=== PATIENT | female | born 2000 | race Caucasian/White ===

== ENCOUNTER → 2021-06-19 | Outpatient (CLI) | payer BC ==
--- NOTE | 2021-06-19 17:03 | Diagnostic Imaging Report ---
INDICATION: IUD placement, unable to locate strings. EXAMINATION: Pelvic sonography performed with transabdominal and transvaginal views. FINDINGS: The uterus measures 5.9 x 2.8 x 4.5 cm. IUD is seen in the endometrial cavity. No uterine mass is seen. Endometrium measures 2 mm. Right ovary appears normal at 1.9 x 2.4 x 1.8 cm with normal color flow. Left ovary appears normal and measures 2.8 x 1.2 x 2.0 cm with normal color flow. There is a trace of free fluid. IMPRESSION: IUD in place in the endometrium. No uterine mass. The ovaries appear normal. There is a trace of free fluid. Dictated by: Dictated on workstation # [id number]
== END ==
LOC: RAD 15:15
PROVIDERS: ATTEND Obstetrics & Gynecology
DX: T83.39XA Other mechanical complication of intrauterine contraceptive device, initial encounter (principal)
CPT/HCPCS: 76830; 76856

== ENCOUNTER 2021-08-03 05:50 | Outpatient (CLI) | payer BC ==
[~2021-08-03] VITALS: Ht 170.2 cm; Wt 54.5 kg
[2021-08-10] MEDS ORDERED: BUPR150T24 PO (14:13)
[2021-08-10] MEDS ORDERED: RIZA10TA37 PO (14:13)
[2021-08-10] MEDS ORDERED: CYCL5TAB PO (14:13)
[2021-08-10] MEDS ORDERED: NF-NORETH5 PO (14:13)
[2021-08-10] MEDS ORDERED: ALPR0.254 PO (14:13)
== END 2021-08-12 16:09 | disposition home or self-care (01) ==
LOC: PREOP 05:50
PROVIDERS: ATTEND Obstetrics & Gynecology
DX: Z01.818 Encounter for other preprocedural examination (principal)

== ENCOUNTER 2021-08-17 08:06 | Day surgery (SDC) | payer BC ==
[2021-08-17] VITALS (10 sets, daily range): BP systolic 88–121; BP diastolic 50–79
[~2021-08-17] VITALS: Ht 170.2 cm; Wt 54.5 kg
[~2021-08-17 08:06] MED LIST: ALPR0.254 PO; BUPR150T24 PO; CYCL5TAB PO; NF-NORETH5 PO; RIZA10TA37 PO
--- OUTSIDE RECORDS SUMMARY | 2021-08-17 08:10 | XMS REPORT | CCD ---
Author Author Crista Ladd Organization Mary Carvajal MD, [facility] Address [address] [place] [address] Phone Care Team Providers Care Tank Farm Gauger Name Role Phone Mary Carvaajl PP Unavailable CCM Unavailable Summary Purpose Interface Exchange Insurance Providers Payer name Policy type / Coverage type Covered alliance party ID Effective Begin Date Effective End Date Blue Cross Blue [facility] Blue Cross/[facility] [id number] Unknown Family history Father Diagnosis Age At Onset Asthma Unknown Depression Unknown Hypertension Unknown Alcoholism Unknown Runs in the family Diagnosis Age At Onset Stroke Unknown Skin cancer Unknown Mother Diagnosis Age At Onset Hypercholesterolemia Unknown Depression Unknown genetic disease Unknown Arthritis Unknown Social History Social History Element Codes Description Effective Dates Marital status Unknown Jd 04/13/2021 Number of children Unknown 0 04/13/2021 Employment Unknown 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 [employer] 04/13/[address]: 598343669 Never smoker 04/13/[address]: 219662920 Never drinks alcohol 2020 Allergies, Adverse Reactions, Alerts Substance Reaction Codes Entered Date Inactivated Date Status NO KNOWN DRUG ALLERGIES Unknown 04/13/2021 No Inactive Date Active Problems Condition Codes Effective Dates Condition Status Encounter for general adult medical examination with a bnormal findings ICD-10: Z00.01 ICD-9: V70.0 06/29/2021 Active Migraine ICD-10: G43.909 ICD-9: 346.90 05/06/2021 Active Muscle spasm ICD-10: M62.838 ICD-9: 728.85 05/06/2021 Active Other allergic rhinitis ICD-10: J30.89 ICD-9: 477.8 05/06/2021 Active Tonsil stone ICD-10: J35.8 ICD-9: 474.8 05/06/2021 Active Endometriosis ICD-10: N80.9 ICD-9: 617.9 04/13/2021 Active History of Lyme disease ICD-10: Z86.19 ICD-9: V12.09 04/13/2021 Active Other fatigue ICD-10: R53.83 ICD-9: 780.79 04/13/2021 Active Other malaise ICD-10: R53.81 ICD-9: 780.79 04/13/2021 Active Medications Medication Codes Instructions Start Date Stop Date Status Fill Instructions cyclobenzaprine 5 mg tablet RxNorm: 536612 Take 1 Table t(s) Oral three times a day as needed FOR MUSCLE SPASMS 08/07/2021 08/16/2021 Active alprazolam 0.25 mg tablet RxNorm: 231683 Take 1 Tablet( s) Oral three times a day as needed 08/07/2021 08/16/2021 Active rizatriptan 10 mg tablet RxNorm: 996907 TAKE 1 TABLET B Y MOUTH EVERY DAY NEEDED FOR MIGRAINE 08/07/2021 08/18/2021 Active alprazolam 0.25 mg tablet RxNorm: 732734 Take 1 Tablet( s) Oral three times a day as needed 07/06/2021 07/06/2021 Inactive cyclobenzaprine 5 mg tablet RxNorm: 855461 Take 1 Table t(s) Oral three times a day as needed FOR MUSCLE SPASMS 07/06/2021 07/15/2021 Inactive alprazolam 0.25 mg tablet RxNorm: 737577 1 Tablet(s) Or al three times a day as needed 06/10/2021 06/10/2021 Inactive cyclobenzaprine 5 mg tablet RxNorm: 998235 Take 1 Table t(s) Oral three times a day as needed muscle spasms 06/10/2021 06/10/2021 Inactive Wellbutrin XL 150 mg 24 hr tablet, extended release RxNorm: 474677 1 Tablet(s) Oral every morning 05/15/2021 09/11/2021 Active Maxalt 10 mg tablet RxNorm: 272439 Take 1 Tablet(s) Ora l every day as needed migraine 05/06/2021 05/06/2021 Inactive cyclobenzaprine 5 mg tablet RxNorm: 794497 Take 1 Table t(s) Oral three times a day as needed muscle spasms 05/06/2021 06/09/2021 Inactive alprazolam 0.25 mg tablet RxNorm: 292235 1 Tablet(s) Or al three times a day as needed 05/05/2021 05/04/2021 Inactive alprazolam 0.25 mg tablet RxNorm: 010020 1 Tablet(s) Or al three times a day as needed 05/05/2021 05/14/2021 Inactive doxycycline hyclate 100 mg capsule RxNorm: 4816764 1 Cap garrison(s) Oral two times a day 04/22/2021 04/21/2021 Inactive doxycycline hyclate 100 mg capsule RxNorm: 0282281 1 Cap garrison(s) Oral two times a day 04/22/2021 05/05/2021 Inactive Diflucan 150 mg tablet RxNorm: 448975 1 Tablet(s) Oral every day 04/27/2021 Inactive norethindrone acetate 5 mg tablet RxNorm: 9248145 1 Tablet(s) Or al every day 04/13/2021 08/11/2021 Active trazodone 50 mg tablet RxNorm: 468481 1 Tablet(s) Oral every evenin g 04/13/2021 No Stop Date Active Wellbutrin XL 150 mg 24 hr tablet, extended release RxNorm: 547810 1 Tablet(s) Oral every morning 04/13/2021 05/15/2021 Inactive Augmentin 875 mg-125 mg tablet RxNorm: 559562 1 Tablet(s) Oral two times a day 04/13/2021 04/23/2021 Inactive norethindrone acetate 5 mg tablet RxNorm: 6992498 1 Tablet(s) Or al every day 04/13/2021 04/12/2021 Inactive Mirena intrauterine RxNorm: 117449 intrauterine 04/13/2021 A ctive Vitamin C oral RxNorm: 1151 oral 04/13/2021 Active multivitamin oral RxNorm: oral 04/13/2021 Active Medication Administered No Medication Administered data Immunizations Vaccine Codes Date Status Covid-19 CVX: 12/22/2020 Covid-19 CVX: 11/21/2020 Results Observation Observation Code Item Item Code Result Date S ervice Location RMSF IgM F282 [facility] Spotted Fev IgM <1:64 04/18 Unknown RMSF IgG F283 [facility] Spotted Fev IgG <1:64 04/18 Unknown EHRLICHIA CHAFFEENSIS ANTIBODY IGG BY IFA F486 E. chaffeensis A b IgG 1:128 04/18/2021 Unknown ANI VUONG VIRUS (EBV) PANEL F259 EBV NA IgG Index 41 0.0 U/mL 04/18/2021 Unknown ANI VUONG VIRUS (EBV) PANEL F259 EBV Nuclear Ag IgG Positive 04/18/2021 Unknown ANI VUONG VIRUS (EBV) PANEL F259 EBV Early Ag Index <5.0 U/mL 04/18/2021 Unknown ANI VUONG VIRUS (EBV) PANEL F259 EBV Early Antigen N egative 04/18/2021 Unknown ANI VUONG VIRUS (EBV) PANEL F259 EBV VCA IgG Index > 750.0 U/mL 04/18/2021 Unknown ANI VUONG VIRUS (EBV) PANEL F259 EBV Anti-VCA IgG Po sitive 04/18/2021 Unknown ANI VUONG VIRUS (EBV) PANEL F259 EBV VCA IgM Index < 10.0 U/mL 04/18/2021 Unknown ANI VUONG VIRUS (EBV) PANEL F259 EBV Anti-VCA IgM Ne gative 04/18/2021 Unknown LYME DISEASE ANTIBODY TOTAL WITH REFLEX TO IMMUNOBLOT F113 Lyme Disease Ab Index 0.05 Index 04/18/2021 Unknown LYME DISEASE ANTIBODY TOTAL WITH REFLEX TO IMMUNOBLOT F113 Lyme Disease Ab Total Negative 04/18/2021 Unknown EHRLICHIA CHAFFEENSIS ANTIBODY IGM BY IFA F485 E. Chaffeensis A b IgM < 1:16 04/18/2021 Unknown C-Reactive Protein Qnt Crqnt CRP 0.1 mg/dl 2020 Unknown Cbc With Differential Ord2 WBC 4.61 K/ul 04/13/20 21 Unknown Cbc With Differential Ord2 RBC 4.64 M/ul 04/13/20 21 Unknown Cbc With Differential Ord2 HGB 13.9 g/dl 04/13/20 21 Unknown Cbc With Differential Ord2 Neut% 53.5 % 04/13/20 21 Unknown Cbc With Differential Ord2 HCT 41.5 % 04/13/20 21 Unknown Cbc With Differential Ord2 MCV 89.4 fl 04/13/20 21 Unknown Cbc With Differential Ord2 Lymph% 33.6 % 04/13/20 21 Unknown Cbc With Differential Ord2 MCH 30.0 pg 04/13/20 21 Unknown Cbc With Differential Ord2 Parker% 8.2 % 04/13/20 21 Unknown Cbc With Differential Ord2 Eos% 4.3 % 04/13/20 21 Unknown Cbc With Differential Ord2 MCHC 33.5 pg 04/13/20 21 Unknown Cbc With Differential Ord2 PLT 262 K/ul 04/13/20 21 Unknown Cbc With Differential Ord2 Baso% 0.4 % 04/13/20 21 Unknown Cbc With Differential Ord2 RDW 13.3 % 04/13/20 21 Unknown Cbc With Differential Ord2 Neut ABS# 2.46 K/ul 04/13/20 21 Unknown Cbc With Differential Ord2 Lymph ABS# 1.55 K/ul 021 Unknown Cbc With Differential Ord2 [place] ABS# 0.4 K/ul 04/13/20 21 Unknown Cbc With Differential Ord2 Eos ABS# 0.2 K/ul 04/13/20 21 Unknown Cbc With Differential Ord2 Baso ABS# 0.0 K/ul 04/13/20 21 Unknown Sed Rate Ord21 ESR 7 mm/hr 04/13/2021 Unknown Comp Metabolic Ebi440 NA 138 mEq/L 04/13/2021 Unkn own Comp Metabolic Rsg799 K 3.9 mEq/L 04/13/2021 Unkn own Comp Metabolic Slo433 CL 106 mEq/L 04/13/2021 Unkn own Comp Metabolic Rjh679 CO2 27.0 mEq/L 04/13/2021 Unk nown Comp Metabolic Npm981 ANION GAP 9 04/13/2021 Unkn own Comp Metabolic Vwb851 GLUCOSE 85 mg/dL 04/13/2021 Unkn own Comp Metabolic Dbg767 Creat 0.7 mg/dL 04/13/2021 Unkn own Comp Metabolic Ibq996 eGFR 111 ml/min/1.73m2 021 Unknown Comp Metabolic Dln348 BUN 9 mg/dL 04/13/2021 Unkn own Comp Metabolic Qur548 B/C Ratio 12.7 Ratio 04/13/2021 Unk nown Comp Metabolic Vru496 CALCIUM 9.3 mg/dL 04/13/2021 Unkn own Comp Metabolic Vge144 ALK PHOS 39 U/L 04/13/2021 Unkn own Comp Metabolic Gjw881 AST(SGOT) 16 U/L 04/13/2021 Unkn own Comp Metabolic Muv624 ALT(SGPT) 12 U/L 04/13/2021 Unkn own Comp Metabolic Nyr419 BILI T 0.3 mg/dL 04/13/2021 Unkn own Comp Metabolic Qrz241 ALBUMIN 4.3 g/dL 04/13/2021 Unkn own Comp Metabolic Ohn005 TPRO 6.7 g/dL 04/13/2021 Unkn own Comp Metabolic Haq544 GLOB 2.4 g/dL 04/13/2021 Unkn own Comp Metabolic Qxj082 A/G Ratio 1.8 Ratio 04/13/2021 Unkn own Comp Metabolic Djn873 Osmo 274 mOsmo 04/13/2021 Unkn own Procedures No Procedures data Vital Signs Date Vital 06/29/2021 Blood Pressure 1: 120/82 Code: 8480-6 BMI: 19.6 Code: 16398-2 Heart Rate 1: 96 bpm Height: 5'7" Code: 8302-2 Respiratory Rate: 16 bpm SpO2: 97% Temperature: 36.7 (C) / 98.0 (F) Weight: 125 lbs Code: 49546-3 05/06/2021 Blood Pressure 1: 120/76 Code: 8480-6 Heart Rate 1: 94 bpm Height: 5'7" Code: 8302-2 SpO2: 99% Temperature: 36.3 (C) / 97.3 (F) Weight: Code: 82608-4 04/13/2021 Blood Pressure 1: 110/66 Code: 8480-6 BMI: 19.1 Code: 63897-9 Heart Rate 1: 88 bpm Height: 5'7" Code: 8302-2 SpO2: 97% Temperature: 3 7.1 (C) / 98.7 (F) Weight: 122 lbs Code: 74143-6 Functional Status No Functional Status data Reason For Visit Reason For Visit Effective Dates Notes fatigue 06/29/2021 fatigue 05/06/2021 depression 04/13/2021 Encounters Encounter Performer Location Codes Date (69534) PREV VISIT EST AGE 18-39 Diagnosis: Encounter for general adult medical examination with abnormal findings[ICD10: Z00.01] [facility] CPT-4: 63961 06/29/2021 ([id number]) 81708 EST. PATIENT, LEVEL IV Diagnosis: Migraine[ICD10: G43.909] Diagnosis: Other allergic rhinitis[ICD10: J30.89] Diagnosis: Tonsil stone[ICD10: J35.8] Diagnosis: Muscle spasm[ICD10: M62.838] Nohemi Carvajal MD, L [facility] CPT- 4: 68167 05/06/2021 OFFICE VISIT, NEW - LEVEL 4 Diagnosis: Other malaise[ICD10: R53.81] Diagnosis: Other fatigue[ICD10: R53.83] Diagnosis: History of Lyme disease[ICD10: Z86.19] Diagnosis: Endometriosis[ICD10: N80.9] Nohemi Carvajal MD, LL C CPT- 4: 73123 04/13/2021 Plan of Care Planned Activity Notes Codes Status Date Visit Plan: Well Adult - pt was counsele d about diet, exercise, and encouraged to follow a heart healthy diet and increase activity level. The patient was instructed to RTC yearly for well adult exams and PRN for acute illnesses. The pt was also instructed to have yearly labs for check of cholesterol, thyroid, chem panel, CBC, and renal functioning. Muscle Pain/Joint Pain and Swelling: - Advised pt to take Vit D3 2000 units daily and Vit B12 liquid 1000 units. -Keep food diary to see what triggers this. -Take Norethendrone at night if the above recommendations do not help. 06/29/2021 Appointment: Mary Carvajal WPtel: [address] [place], [place] [phone] (15 min) Moderate 06/29/2021 Patient Education: Patient Medication Summary Completed 06/29/2021 Patient Education: Patient Medication Summary Completed 06/10/2021 Visit Plan: Allergies, tonsil stone - wi ll refer to ENT - chronic - recommended pt to use allergy medication as prescribed. Pt has been counseled as to the appropriate use of the medication. Pt to call if allergy symptoms are not controlled with the medication. If using nasal spray, instructions as follows: Nasal spray- use twice daily, one spray per nostril twice daily, after 30 minutes, rinse out nose with saline spray.. Use opposite hand per nostril to spray in the nasal steroid allergy spray. headaches, migraines - will send rx - pt is to notify clinic if no improvement muscle spasms - will send rx - pt is to notify clinic if no improvement 05/06/2021 [facility]ment[facility] [phone] [id number] ([facility] Complex 05/06/2021 Patient Education: Patient Medication Summary Completed 05/06/2021 Visit Plan: Fatigue, malaise, hx of lyme disease - will check labs and treat as indicated - will send RX - pt is to notify clinic with any acute changes, questions, or concerns. Endometriosis - will refer to [employer] - pt is to notify clinic with any questions, or concerns. 04/13/2021 Appointment: [facility]add[facility]el[facility] [phone] [facility] [facility] Patient 04/13/2021 Patient Education: Patient Medication Summary Completed 04/13/2021 Instructions Comment . Well Adult - pt was counseled about di et, exercise, and encouraged to follow a heart healthy diet and increase activity level. The patient was instructed to RTC yearly for well adult exams and PRN for acute illnesses. The pt was also instructed to have yearly labs for check of cholesterol, thyroid, chem panel, CBC, and renal functioning. Muscle Pain/Joint Pain and Swelling: -Advised pt to take Vit D3 2000 units da harsh and Vit B12 liquid 1000 units. -Keep food diary to see what triggers th is. -Take Norethendrone at night if the abov e recommendations do not help. . Allergies, tonsil stone - will refer t o ENT - chronic - recommended pt to use allergy medication as prescribed. Pt has been counseled as to the appropriate use of the medication. Pt to call if allergy symptoms are not controlled with the medication. If using nasal spray, instructions as follows: Nasal spray- use twice daily, one spray per nostril twice daily, after 30 minutes, rinse out nose with saline spray.. Use opposite hand per nostril to spray in the nasal steroid allergy spray. headaches, migraines - will send rx - pt is to notify clinic if no improvement muscle spasms - will send rx - pt is to notify clinic if no improvement . Fatigue, malaise, hx of lyme disease - will check labs and treat as indicated - will send RX - pt is to notify clinic with any acute changes, questions, or concerns. Endometriosis - will refer to [employer] - pt is to notify clinic with any questions, or concerns. Medical Equipment No Medical Equipment data Health Concerns Section Health Concerns data not found Goals Section Goals data not found Interventions Section Interventions data not found Health Status Evaluations/Outcomes Section Health Status Evaluations/Outcomes data not found Advance Directives No Advance Directive data
--- OUTSIDE RECORDS SUMMARY | 2021-08-17 08:12 | XMS REPORT | CCD ---
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 [employer] 04/13/[address]: 784830821 Never smoker 04/13/[address]: 001334648 Never drinks alcohol 2020 Allergies, Adverse Reactions, [...] Start Date Stop Date Status Fill Instructions alprazolam 0.25 mg tablet RxNorm: 637417 Take 1 Tablet( s) Oral three times a day as needed 07/06/2021 07/15/2021 Active cyclobenzaprine 5 mg tablet RxNorm: 491576 Take 1 Table t(s) Oral three times a day as needed FOR MUSCLE SPASMS 07/06/2021 07/15/2021 Active alprazolam 0.25 mg tablet RxNorm: 850118 1 Tablet(s) Or al three times a day as needed 06/10/2021 06/10/2021 Inactive cyclobenzaprine 5 mg tablet RxNorm: 587166 Take 1 Table t(s) Oral three times a day as needed muscle spasms 06/10/2021 06/10/2021 Inactive Wellbutrin XL 150 mg 24 hr tablet, extended release RxNorm: 868351 1 Tablet(s) Oral every morning 05/15/2021 09/11/2021 Active Maxalt 10 mg tablet RxNorm: 111145 Take 1 Tablet(s) Ora l every day as needed migraine 05/06/2021 No Stop Date Active cyclobenzaprine 5 mg tablet RxNorm: 311370 Take 1 Table t(s) Oral three times a day as needed muscle spasms 05/06/2021 06/09/2021 Inactive alprazolam 0.25 mg tablet RxNorm: 521447 1 Tablet(s) Or al three times a day as needed 05/05/2021 05/04/2021 Inactive alprazolam 0.25 mg tablet RxNorm: 892415 1 Tablet(s) Or al three times a day as needed 05/05/2021 05/14/2021 Inactive doxycycline hyclate 100 mg capsule RxNorm: 8057904 1 Cap garrison(s) Oral two times a day 04/22/2021 04/21/2021 Inactive doxycycline hyclate 100 mg capsule RxNorm: 2565477 1 Cap garrison(s) Oral two times a day 04/22/2021 05/05/2021 Inactive Diflucan 150 mg tablet RxNorm: 779041 1 Tablet(s) Oral every day 04/27/2021 Inactive norethindrone acetate 5 mg tablet RxNorm: 8416958 1 Tablet(s) Or al every day 04/13/2021 08/11/2021 Active trazodone 50 mg tablet RxNorm: 931461 1 Tablet(s) Oral every evenin g 04/13/2021 No Stop Date Active Wellbutrin XL 150 mg 24 hr tablet, extended release RxNorm: 594631 1 Tablet(s) Oral every morning 04/13/2021 05/15/2021 Inactive Augmentin 875 mg-125 mg tablet RxNorm: 042027 1 Tablet(s) Oral two times a day 04/13/2021 04/23/2021 Inactive norethindrone acetate 5 mg tablet RxNorm: 0473957 1 Tablet(s) Or al every day 04/13/2021 04/12/2021 Inactive Mirena intrauterine RxNorm: 753252 intrauterine 04/13/2021 A ctive Vitamin C oral RxNorm: 1151 oral 04/13/2021 Active multivitamin oral RxNorm: oral 04/13/2021 Active Medication Administered No Medication Administered data Immunizations Vaccine Codes Date Status Covid-19 CVX: 12/22/2020 Covid-19 CVX: 11/21/2020 Results Observation Observation Code Item Item Code Result Date S [facility] Location RMSF IgM F282 [facility] Spotted Fev IgM <1:64 04/18 Unknown RMSF IgG F283 [facility] Spotted Fev IgG <1:64 04/18 Unknown [...] 04/13/20 21 Unknown Cbc With Differential Ord2 [place]% 8.2 % 04/13/20 21 Unknown Cbc With [...] K/ul 021 Unknown Cbc With Differential Ord2 [place] ABS# 0.4 K/ul 04/13/20 21 Unknown Cbc With Differential Ord2 Eos ABS# 0.2 K/ul 04/13/20 21 Unknown Cbc With Differential Ord2 Baso ABS# 0.0 K/ul 04/13/20 21 Unknown Sed Rate Ord21 ESR 7 mm/hr 04/13/2021 Unknown Comp Metabolic Okj460 NA 138 mEq/L 04/13/2021 Unkn own Comp Metabolic Xiy214 K 3.9 mEq/L 04/13/2021 Unkn own Comp Metabolic Qlr740 CL 106 mEq/L 04/13/2021 Unkn own Comp Metabolic Dgg596 CO2 27.0 mEq/L 04/13/2021 Unk nown Comp Metabolic Wxj020 ANION GAP 9 04/13/2021 Unkn own Comp Metabolic Bmm866 GLUCOSE 85 mg/dL 04/13/2021 Unkn own Comp Metabolic Pla267 Creat 0.7 mg/dL 04/13/2021 Unkn own Comp Metabolic Sbs415 eGFR 111 ml/min/1.73m2 021 Unknown Comp Metabolic Oew399 BUN 9 mg/dL 04/13/2021 Unkn own Comp Metabolic Knj386 B/C Ratio 12.7 Ratio 04/13/2021 Unk nown Comp Metabolic Kvt275 CALCIUM 9.3 mg/dL 04/13/2021 Unkn own Comp Metabolic Skh052 ALK PHOS 39 U/L 04/13/2021 Unkn own Comp Metabolic Wjq690 AST(SGOT) 16 U/L 04/13/2021 Unkn own Comp Metabolic Gek494 ALT(SGPT) 12 U/L 04/13/2021 Unkn own Comp Metabolic Csc059 BILI T 0.3 mg/dL 04/13/2021 Unkn own Comp Metabolic Xju276 ALBUMIN 4.3 g/dL 04/13/2021 Unkn own Comp Metabolic Zdm695 TPRO 6.7 g/dL 04/13/2021 Unkn own Comp Metabolic Rxy464 GLOB 2.4 g/dL 04/13/2021 Unkn own Comp Metabolic Tdq167 A/G Ratio 1.8 Ratio 04/13/2021 Unkn own Comp Metabolic Kkq506 Osmo 274 mOsmo 04/13/2021 Unkn own Procedures No Procedures data Vital Signs Date Vital 06/29/2021 Blood Pressure 1: 120/82 Code: 8480-6 BMI: 19.6 Code: 36165-6 Heart Rate 1: 96 bpm Height: 5'7" Code: 8302-2 Respiratory Rate: 16 bpm SpO2: 97% Temperature: 36.7 (C) / 98.0 (F) Weight: 125 lbs Code: 84738-8 05/06/2021 Blood Pressure 1: 120/76 Code: 8480-6 Heart Rate 1: 94 bpm Height: 5'7" Code: 8302-2 SpO2: 99% Temperature: 36.3 (C) / 97.3 (F) Weight: Code: 41824-1 04/13/2021 Blood Pressure 1: 110/66 Code: 8480-6 BMI: 19.1 Code: 57105-3 Heart Rate 1: 88 bpm Height: 5'7" Code: 8302-2 SpO2: 97% Temperature: 3 7.1 (C) / 98.7 (F) Weight: 122 lbs Code: 06670-5 Functional Status No Functional Status data Reason For Visit Reason For Visit Effective Dates Notes fatigue 06/29/2021 fatigue 05/06/2021 depression 04/13/2021 Encounters Encounter Performer Location Codes Date (00223) PREV VISIT EST AGE 18-39 Diagnosis: Encounter for general adult medical examination with abnormal findings[ICD10: Z00.01] Mary Carvajal MD, [facility] CPT-4: 59415 06/29/2021 ([id number]) 60200 EST. PATIENT, LEVEL IV Diagnosis: Migraine[ICD10: G43.909] Diagnosis: Other allergic rhinitis[ICD10: J30.89] Diagnosis: Tonsil stone[ICD10: J35.8] Diagnosis: Muscle spasm[ICD10: M62.838] Steve Phipps MD CPT- 4: 26089 05/06/2021 OFFICE VISIT, NEW - LEVEL 4 Diagnosis: Other malaise[ICD10: R53.81] Diagnosis: Other fatigue[ICD10: R53.83] Diagnosis: History of Lyme disease[ICD10: Z86.19] Diagnosis: Endometriosis[ICD10: N80.9] Nohemi Carvajal MD, LL C CPT- 4: 14986 04/13/2021 Plan of Care Planned Activity Notes [...] not help. 06/29/2021 Appointment: [facility] [phone] [id number] ([facility] min) Moderate 06/29/2021 Patient Education: Patient [...] improvement 05/06/2021 Appointment[facility]add [facility] [phone] [id number] ([facility]) Complex 05/06/2021 Patient Education: Patient Medication Summary Completed 05/06/2021 Visit Plan: Fatigue, malaise, hx of lyme disease - will check labs and treat as indicated - will send RX - pt is to notify clinic with any acute changes, questions, or concerns. Endometriosis - will refer to [employer] [employer] - pt is to notify clinic with any questions, or concerns. 04/13/2021 Appointment: Nohemi Ladd WPtel: [address] [place], [place] [id number] [place] New Patient 04/13/2021 Patient Education: Patient Medication [...] or concerns. Endometriosis - will refer to [employer] [employer] - pt is to notify clinic with any questions, or concerns. Medical Equipment No Medical Equipment data Health Concerns Section Health Concerns data not found Goals Section Goals data not found Interventions Section Interventions data not found Health Status Evaluations/Outcomes Section Health Status Evaluations/Outcomes data not found Advance Directives No Advance Directive data
--- OUTSIDE RECORDS SUMMARY | 2021-08-17 08:12 | XMS REPORT | CCD ---
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 [employer] 04/13/[address]: 771526790 Never smoker 04/13/[address]: 833923825 Never drinks alcohol 2020 Allergies, Adverse Reactions, [...] Fill Instructions cyclobenzaprine 5 mg tablet RxNorm: 339841 Take 1 Table t(s) Oral three times a day as needed FOR MUSCLE SPASMS 08/07/2021 08/16/2021 Active rizatriptan 10 mg tablet RxNorm: 174161 TAKE 1 TABLET B Y MOUTH EVERY DAY NEEDED FOR MIGRAINE 08/07/2021 08/18/2021 Active alprazolam 0.25 mg tablet RxNorm: 013571 Take 1 Tablet( s) Oral three times a day as needed 07/06/2021 07/15/2021 Inactive cyclobenzaprine 5 mg tablet RxNorm: 825835 Take 1 Table t(s) Oral three times a day as needed FOR MUSCLE SPASMS 07/06/2021 07/15/2021 Inactive alprazolam 0.25 mg tablet RxNorm: 691909 1 Tablet(s) Or al three times a day as needed 06/10/2021 06/10/2021 Inactive cyclobenzaprine 5 mg tablet RxNorm: 351333 Take 1 Table t(s) Oral three times a day as needed muscle spasms 06/10/2021 06/10/2021 Inactive Wellbutrin XL 150 mg 24 hr tablet, extended release RxNorm: 809258 1 Tablet(s) Oral every morning 05/15/2021 09/11/2021 Active Maxalt 10 mg tablet RxNorm: 297554 Take 1 Tablet(s) Ora l every day as needed migraine 05/06/2021 05/06/2021 Inactive cyclobenzaprine 5 mg tablet RxNorm: 772423 Take 1 Table t(s) Oral three times a day as needed muscle spasms 05/06/2021 06/09/2021 Inactive alprazolam 0.25 mg tablet RxNorm: 017156 1 Tablet(s) Or al three times a day as needed 05/05/2021 05/04/2021 Inactive alprazolam 0.25 mg tablet RxNorm: 320364 1 Tablet(s) Or al three times a day as needed 05/05/2021 05/14/2021 Inactive doxycycline hyclate 100 mg capsule RxNorm: 8541232 1 Cap garrison(s) Oral two times a day 04/22/2021 04/21/2021 Inactive doxycycline hyclate 100 mg capsule RxNorm: 2668098 1 Cap garrison(s) Oral two times a day 04/22/2021 05/05/2021 Inactive Diflucan 150 mg tablet RxNorm: 094594 1 Tablet(s) Oral every day 04/27/2021 Inactive norethindrone acetate 5 mg tablet RxNorm: 2783005 1 Tablet(s) Or al every day 04/13/2021 08/11/2021 Active trazodone 50 mg tablet RxNorm: 447751 1 Tablet(s) Oral every evenin g 04/13/2021 No Stop Date Active Wellbutrin XL 150 mg 24 hr tablet, extended release RxNorm: 018233 1 Tablet(s) Oral every morning 04/13/2021 05/15/2021 Inactive Augmentin 875 mg-125 mg tablet RxNorm: 419094 1 Tablet(s) Oral two times a day 04/13/2021 04/23/2021 Inactive norethindrone acetate 5 mg tablet RxNorm: 1148699 1 Tablet(s) Or al every day 04/13/2021 04/12/2021 Inactive Mirena intrauterine RxNorm: 803160 intrauterine 04/13/2021 A ctive Vitamin C oral RxNorm: 1151 oral 04/13/2021 Active multivitamin oral RxNorm: oral 04/13/2021 Active Medication Administered No Medication Administered data Immunizations Vaccine Codes Date Status Covid-19 CVX: 12/22/2020 Covid-19 CVX: 11/21/2020 Results Observation Observation Code Item Item Code Result Date S ervice Location RMSF IgM F282 [place] Spotted Fev IgM <1:64 04/18 Unknown RMSF IgG F283 [place] Spotted Fev IgG <1:64 04/18 Unknown EHRLICHIA [...] 04/13/20 21 Unknown Cbc With Differential Ord2 [place]% 8.2 % 04/13/20 21 Unknown Cbc With [...] K/ul 021 Unknown Cbc With Differential Ord2 [place] ABS# 0.4 K/ul 04/13/20 21 Unknown Cbc With Differential Ord2 Eos ABS# 0.2 K/ul 04/13/20 21 Unknown Cbc With Differential Ord2 Baso ABS# 0.0 K/ul 04/13/20 21 Unknown Sed Rate Ord21 ESR 7 mm/hr 04/13/2021 Unknown Comp Metabolic Qna643 NA 138 mEq/L 04/13/2021 Unkn own Comp Metabolic Uul767 K 3.9 mEq/L 04/13/2021 Unkn own Comp Metabolic Vjo100 CL 106 mEq/L 04/13/2021 Unkn own Comp Metabolic Pzg731 CO2 27.0 mEq/L 04/13/2021 Unk nown Comp Metabolic Jic015 ANION GAP 9 04/13/2021 Unkn own Comp Metabolic Lss155 GLUCOSE 85 mg/dL 04/13/2021 Unkn own Comp Metabolic Slt931 Creat 0.7 mg/dL 04/13/2021 Unkn own Comp Metabolic Nfh724 eGFR 111 ml/min/1.73m2 021 Unknown Comp Metabolic Dcd386 BUN 9 mg/dL 04/13/2021 Unkn own Comp Metabolic Mtf990 B/C Ratio 12.7 Ratio 04/13/2021 Unk nown Comp Metabolic Bcx329 CALCIUM 9.3 mg/dL 04/13/2021 Unkn own Comp Metabolic Oms101 ALK PHOS 39 U/L 04/13/2021 Unkn own Comp Metabolic Ivm538 AST(SGOT) 16 U/L 04/13/2021 Unkn own Comp Metabolic Aef496 ALT(SGPT) 12 U/L 04/13/2021 Unkn own Comp Metabolic Cfr465 BILI T 0.3 mg/dL 04/13/2021 Unkn own Comp Metabolic Rdt076 ALBUMIN 4.3 g/dL 04/13/2021 Unkn own Comp Metabolic Pmm172 TPRO 6.7 g/dL 04/13/2021 Unkn own Comp Metabolic Ewt762 GLOB 2.4 g/dL 04/13/2021 Unkn own Comp Metabolic Cet243 A/G Ratio 1.8 Ratio 04/13/2021 Unkn own Comp Metabolic Kuu668 Osmo 274 mOsmo 04/13/2021 Unkn own Procedures No Procedures data Vital Signs Date Vital 06/29/2021 Blood Pressure 1: 120/82 Code: 8480-6 BMI: 19.6 Code: 25308-4 Heart Rate 1: 96 bpm Height: 5'7" Code: 8302-2 Respiratory Rate: 16 bpm SpO2: 97% Temperature: 36.7 (C) / 98.0 (F) Weight: 125 lbs Code: 41808-7 05/06/2021 Blood Pressure 1: 120/76 Code: 8480-6 Heart Rate 1: 94 bpm Height: 5'7" Code: 8302-2 SpO2: 99% Temperature: 36.3 (C) / 97.3 (F) Weight: Code: 90110-3 04/13/2021 Blood Pressure 1: 110/66 Code: 8480-6 BMI: 19.1 Code: 18772-0 Heart Rate 1: 88 bpm Height: 5'7" Code: 8302-2 SpO2: 97% Temperature: 3 7.1 (C) / 98.7 (F) Weight: 122 lbs Code: 96271-2 Functional Status No Functional Status data Reason For Visit Reason For Visit Effective Dates Notes fatigue 06/29/2021 fatigue 05/06/2021 depression 04/13/2021 Encounters Encounter Performer Location Codes Date (06511) PREV VISIT EST AGE 18-39 Diagnosis: Encounter for general adult medical examination with abnormal findings[ICD10: Z00.01] [facility] CPT-4: 96742 06/29/2021 ([id number]) 37285 EST. PATIENT, LEVEL IV Diagnosis: Migraine[ICD10: G43.909] Diagnosis: Other allergic rhinitis[ICD10: J30.89] Diagnosis: Tonsil stone[ICD10: J35.8] Diagnosis: Muscle spasm[ICD10: M62.838] Nohemi Carvajal MD, L CPT- 4: 94707 05/06/2021 OFFICE VISIT, NEW - LEVEL 4 Diagnosis: Other malaise[ICD10: R53.81] Diagnosis: Other fatigue[ICD10: R53.83] Diagnosis: History of Lyme disease[ICD10: Z86.19] Diagnosis: Endometriosis[ICD10: N80.9] Nohemi Carvajal MD, C CPT- 4: 48860 04/13/2021 Plan of Care Planned Activity Notes [...] not help. 06/29/2021 Appointment: Mary Carvajal WPtel: [address] [place], [place] [id number] (15 min) Moderate 06/29/2021 Patient Education: Patient [...] no improvement 05/06/2021 Appointment: Nohemi Ladd WPtel: [facility] [place] [id number] (30 min) Complex 05/06/2021 Patient Education: Patient Medication Summary Completed 05/06/2021 Visit Plan: Fatigue, malaise, hx of lyme disease - will check labs and treat as indicated - will send RX - pt is to notify clinic with any acute changes, questions, or concerns. Endometriosis - will refer to [facility] - pt is to notify clinic with any questions, or concerns. 04/13/2021 Appointment: Nohemi Ladd WPtel: [phone] [facility] New Patient 04/13/2021 Patient Education: Patient Medication [...] or concerns. Endometriosis - will refer to [facility] - pt is to notify clinic with any questions, or concerns. Medical Equipment No Medical Equipment data Health Concerns Section Health Concerns data not found Goals Section Goals data not found Interventions Section Interventions data not found Health Status Evaluations/Outcomes Section Health Status Evaluations/Outcomes data not found Advance Directives No Advance Directive data
--- OUTSIDE RECORDS SUMMARY | 2021-08-17 08:12 | XMS REPORT | CCD ---
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 [employer] 04/13/[address]: 856583466 Never smoker 04/13/[address]: 569085918 Never drinks alcohol 2020 Allergies, Adverse Reactions, [...] Fill Instructions cyclobenzaprine 5 mg tablet RxNorm: 542117 Take 1 Table t(s) Oral three times a day as needed FOR MUSCLE SPASMS 08/07/2021 08/16/2021 Active alprazolam 0.25 mg tablet RxNorm: 292771 Take 1 Tablet( s) Oral three times a day as needed 07/06/2021 07/15/2021 Inactive cyclobenzaprine 5 mg tablet RxNorm: 553767 Take 1 Table t(s) Oral three times a day as needed FOR MUSCLE SPASMS 07/06/2021 07/15/2021 Inactive alprazolam 0.25 mg tablet RxNorm: 322488 1 Tablet(s) Or al three times a day as needed 06/10/2021 06/10/2021 Inactive cyclobenzaprine 5 mg tablet RxNorm: 607819 Take 1 Table t(s) Oral three times a day as needed muscle spasms 06/10/2021 06/10/2021 Inactive Wellbutrin XL 150 mg 24 hr tablet, extended release RxNorm: 298775 1 Tablet(s) Oral every morning 05/15/2021 09/11/2021 Active Maxalt 10 mg tablet RxNorm: 047204 Take 1 Tablet(s) Ora l every day as needed migraine 05/06/2021 No Stop Date Active cyclobenzaprine 5 mg tablet RxNorm: 163879 Take 1 Table t(s) Oral three times a day as needed muscle spasms 05/06/2021 06/09/2021 Inactive alprazolam 0.25 mg tablet RxNorm: 789957 1 Tablet(s) Or al three times a day as needed 05/05/2021 05/04/2021 Inactive alprazolam 0.25 mg tablet RxNorm: 133605 1 Tablet(s) Or al three times a day as needed 05/05/2021 05/14/2021 Inactive doxycycline hyclate 100 mg capsule RxNorm: 5084869 1 Cap garrison(s) Oral two times a day 04/22/2021 04/21/2021 Inactive doxycycline hyclate 100 mg capsule RxNorm: 6880149 1 Cap garrison(s) Oral two times a day 04/22/2021 05/05/2021 Inactive Diflucan 150 mg tablet RxNorm: 741684 1 Tablet(s) Oral every day 04/27/2021 Inactive norethindrone acetate 5 mg tablet RxNorm: 1987563 1 Tablet(s) Or al every day 04/13/2021 08/11/2021 Active trazodone 50 mg tablet RxNorm: 579357 1 Tablet(s) Oral every evenin g 04/13/2021 No Stop Date Active Wellbutrin XL 150 mg 24 hr tablet, extended release RxNorm: 230869 1 Tablet(s) Oral every morning 04/13/2021 05/15/2021 Inactive Augmentin 875 mg-125 mg tablet RxNorm: 468627 1 Tablet(s) Oral two times a day 04/13/2021 04/23/2021 Inactive norethindrone acetate 5 mg tablet RxNorm: 9790782 1 Tablet(s) Or al every day 04/13/2021 04/12/2021 Inactive Mirena intrauterine RxNorm: 708334 intrauterine 04/13/2021 A ctive Vitamin C oral RxNorm: 1151 oral 04/13/2021 Active multivitamin oral RxNorm: oral 04/13/2021 Active Medication Administered No Medication Administered data Immunizations Vaccine Codes Date Status Covid-19 CVX: 12/22/2020 Covid-19 CVX: 11/21/2020 Results Observation Observation Code Item Item Code Result Date S ervice Location RMSF IgM F282 [place] Spotted Fev IgM <1:64 04/18 Unknown RMSF IgG F283 [facility] Spotted Fev IgG <1:64 04/18 Unknown [...] 04/13/20 21 Unknown Cbc With Differential Ord2 [place]% 8.2 % 04/13/20 21 Unknown Cbc With [...] K/ul 021 Unknown Cbc With Differential Ord2 [place] ABS# 0.4 K/ul 04/13/20 21 Unknown Cbc With Differential Ord2 Eos ABS# 0.2 K/ul 04/13/20 21 Unknown Cbc With Differential Ord2 Baso ABS# 0.0 K/ul 04/13/20 21 Unknown Sed Rate Ord21 ESR 7 mm/hr 04/13/2021 Unknown Comp Metabolic Orq411 NA 138 mEq/L 04/13/2021 Unkn own Comp Metabolic Jzp542 K 3.9 mEq/L 04/13/2021 Unkn own Comp Metabolic Yag187 CL 106 mEq/L 04/13/2021 Unkn own Comp Metabolic Fmr674 CO2 27.0 mEq/L 04/13/2021 Unk nown Comp Metabolic Bza200 ANION GAP 9 04/13/2021 Unkn own Comp Metabolic Pet572 GLUCOSE 85 mg/dL 04/13/2021 Unkn own Comp Metabolic Bvo890 Creat 0.7 mg/dL 04/13/2021 Unkn own Comp Metabolic Bwp542 eGFR 111 ml/min/1.73m2 021 Unknown Comp Metabolic Wpr023 BUN 9 mg/dL 04/13/2021 Unkn own Comp Metabolic Hon020 B/C Ratio 12.7 Ratio 04/13/2021 Unk nown Comp Metabolic Cpf836 CALCIUM 9.3 mg/dL 04/13/2021 Unkn own Comp Metabolic Xmf365 ALK PHOS 39 U/L 04/13/2021 Unkn own Comp Metabolic Agb829 AST(SGOT) 16 U/L 04/13/2021 Unkn own Comp Metabolic Ytn018 ALT(SGPT) 12 U/L 04/13/2021 Unkn own Comp Metabolic Epz618 BILI T 0.3 mg/dL 04/13/2021 Unkn own Comp Metabolic Xmr423 ALBUMIN 4.3 g/dL 04/13/2021 Unkn own Comp Metabolic Sep132 TPRO 6.7 g/dL 04/13/2021 Unkn own Comp Metabolic Por494 GLOB 2.4 g/dL 04/13/2021 Unkn own Comp Metabolic Fdl814 A/G Ratio 1.8 Ratio 04/13/2021 Unkn own Comp Metabolic Pkt405 Osmo 274 mOsmo 04/13/2021 Unkn own Procedures No Procedures data Vital Signs Date Vital 06/29/2021 Blood Pressure 1: 120/82 Code: 8480-6 BMI: 19.6 Code: 75282-8 Heart Rate 1: 96 bpm Height: 5'7" Code: 8302-2 Respiratory Rate: 16 bpm SpO2: 97% Temperature: 36.7 (C) / 98.0 (F) Weight: 125 lbs Code: 11677-4 05/06/2021 Blood Pressure 1: 120/76 Code: 8480-6 Heart Rate 1: 94 bpm Height: 5'7" Code: 8302-2 SpO2: 99% Temperature: 36.3 (C) / 97.3 (F) Weight: Code: 09975-7 04/13/2021 Blood Pressure 1: 110/66 Code: 8480-6 BMI: 19.1 Code: 39546-4 Heart Rate 1: 88 bpm Height: 5'7" Code: 8302-2 SpO2: 97% Temperature: 3 7.1 (C) / 98.7 (F) Weight: 122 lbs Code: 72198-4 Functional Status No Functional Status data Reason For Visit Reason For Visit Effective Dates Notes fatigue 06/29/2021 fatigue 05/06/2021 depression 04/13/2021 Encounters Encounter Performer Location Codes Date (84498) PREV VISIT EST AGE 18-39 Diagnosis: Encounter for general adult medical examination with abnormal findings[ICD10: Z00.01] Mary Carvajal MD, [facility] CPT-4: 73776 06/29/2021 ([id number]) 89594 EST. PATIENT, LEVEL IV Diagnosis: Migraine[ICD10: G43.909] Diagnosis: Other allergic rhinitis[ICD10: J30.89] Diagnosis: Tonsil stone[ICD10: J35.8] Diagnosis: Muscle spasm[ICD10: M62.838] Steve Phipps MD CPT- 4: 22122 05/06/2021 OFFICE VISIT, NEW - LEVEL 4 Diagnosis: Other malaise[ICD10: R53.81] Diagnosis: Other fatigue[ICD10: R53.83] Diagnosis: History of Lyme disease[ICD10: Z86.19] Diagnosis: Endometriosis[ICD10: N80.9] Nohemi Carvajal MD, C CPT- 4: 08240 04/13/2021 Plan of Care Planned Activity Notes [...] help. 06/29/2021 Appointment: [facility]al [facility] [phone] [facility] ([facility]) Moderate 06/29/2021 Patient Education: Patient [...] no improvement 05/06/2021 Appointment: [facility]add [facility] [phone] [facility] ([facility]) Complex 05/06/2021 Patient Education: Patient Medication Summary Completed 05/06/2021 Visit Plan: Fatigue, malaise, hx of lyme disease - will check labs and treat as indicated - will send RX - pt is to notify clinic with any acute changes, questions, or concerns. Endometriosis - will refer to WAREHOUSE HELPER - pt is to notify clinic with any questions, or concerns. 04/13/2021 Appointment: Nohemi Ladd [facility]el[facility] [phone] [facility] [place] New Patient 04/13/2021 Patient Education: Patient [...] or concerns. Endometriosis - will refer to WAREHOUSE HELPER - pt is to notify clinic with any questions, or concerns. Medical Equipment No Medical Equipment data Health Concerns Section Health Concerns data not found Goals Section Goals data not found Interventions Section Interventions data not found Health Status Evaluations/Outcomes Section Health Status Evaluations/Outcomes data not found Advance Directives No Advance Directive data
--- OUTSIDE RECORDS SUMMARY | 2021-08-17 08:12 | XMS REPORT | CCD ---
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[employer] 04/13/[address]: 033275529 Never smoker 04/13/[address]: 543893273 Never drinks alcohol 2020 Allergies, Adverse Reactions, [...] Fill Instructions alprazolam 0.25 mg tablet RxNorm: 944754 1 Tablet(s) Or al three times a day as needed 06/10/2021 06/19/2021 Inactive cyclobenzaprine 5 mg tablet RxNorm: 409992 Take 1 Table t(s) Oral three times a day as needed muscle spasms 06/10/2021 06/10/2021 Inactive Wellbutrin XL 150 mg 24 hr tablet, extended release RxNorm: 523195 1 Tablet(s) Oral every morning 05/15/2021 09/11/2021 Active Maxalt 10 mg tablet RxNorm: 011669 Take 1 Tablet(s) Ora l every day as needed migraine 05/06/2021 No Stop Date Active cyclobenzaprine 5 mg tablet RxNorm: 510604 Take 1 Table t(s) Oral three times a day as needed muscle spasms 05/06/2021 06/09/2021 Inactive alprazolam 0.25 mg tablet RxNorm: 572689 1 Tablet(s) Or al three times a day as needed 05/05/2021 05/04/2021 Inactive alprazolam 0.25 mg tablet RxNorm: 287581 1 Tablet(s) Or al three times a day as needed 05/05/2021 05/14/2021 Inactive doxycycline hyclate 100 mg capsule RxNorm: 6158588 1 Cap garrison(s) Oral two times a day 04/22/2021 04/21/2021 Inactive doxycycline hyclate 100 mg capsule RxNorm: 9084571 1 Cap garrison(s) Oral two times a day 04/22/2021 05/05/2021 Inactive Diflucan 150 mg tablet RxNorm: 363115 1 Tablet(s) Oral every day 04/27/2021 Inactive norethindrone acetate 5 mg tablet RxNorm: 7185970 1 Tablet(s) Or al every day 04/13/2021 08/11/2021 Active trazodone 50 mg tablet RxNorm: 851538 1 Tablet(s) Oral every evenin g 04/13/2021 No Stop Date Active Wellbutrin XL 150 mg 24 hr tablet, extended release RxNorm: 430270 1 Tablet(s) Oral every morning 04/13/2021 05/15/2021 Inactive Augmentin 875 mg-125 mg tablet RxNorm: 290267 1 Tablet(s) Oral two times a day 04/13/2021 04/23/2021 Inactive norethindrone acetate 5 mg tablet RxNorm: 1107815 1 Tablet(s) Or al every day 04/13/2021 04/12/2021 Inactive Mirena intrauterine RxNorm: 770079 intrauterine 04/13/2021 A ctive Vitamin C oral RxNorm: 1151 oral 04/13/2021 Active multivitamin oral RxNorm: oral 04/13/2021 Active Medication Administered No Medication Administered data Immunizations Vaccine Codes Date Status Covid-19 CVX: 12/22/2020 Covid-19 CVX: 11/21/2020 Results Observation Observation Code Item Item Code Result Date S [facility] Location RMSF IgM F282 [facility] Spotted Fev IgM <1:64 04/18 Unknown RMSF IgG F283 [facility] Spotted Fev IgG <1:64 04/18 Unknown EHRLICHIA [...] 04/13/20 21 Unknown Cbc With Differential Ord2 [place]% 8.2 % 04/13/20 21 Unknown Cbc With [...] K/ul 021 Unknown Cbc With Differential Ord2 [place] ABS# 0.4 K/ul 04/13/20 21 Unknown Cbc With Differential Ord2 Eos ABS# 0.2 K/ul 04/13/20 21 Unknown Cbc With Differential Ord2 Baso ABS# 0.0 K/ul 04/13/20 21 Unknown Sed Rate Ord21 ESR 7 mm/hr 04/13/2021 Unknown Comp Metabolic Mfx004 NA 138 mEq/L 04/13/2021 Unkn own Comp Metabolic Hvg014 K 3.9 mEq/L 04/13/2021 Unkn own Comp Metabolic Qdx564 CL 106 mEq/L 04/13/2021 Unkn own Comp Metabolic Mnq515 CO2 27.0 mEq/L 04/13/2021 Unk nown Comp Metabolic Mkm895 ANION GAP 9 04/13/2021 Unkn own Comp Metabolic Lqz668 GLUCOSE 85 mg/dL 04/13/2021 Unkn own Comp Metabolic Aom762 Creat 0.7 mg/dL 04/13/2021 Unkn own Comp Metabolic Cbr963 eGFR 111 ml/min/1.73m2 021 Unknown Comp Metabolic Vve647 BUN 9 mg/dL 04/13/2021 Unkn own Comp Metabolic Fvc036 B/C Ratio 12.7 Ratio 04/13/2021 Unk nown Comp Metabolic Rys233 CALCIUM 9.3 mg/dL 04/13/2021 Unkn own Comp Metabolic Hgp477 ALK PHOS 39 U/L 04/13/2021 Unkn own Comp Metabolic Hle635 AST(SGOT) 16 U/L 04/13/2021 Unkn own Comp Metabolic Wxj060 ALT(SGPT) 12 U/L 04/13/2021 Unkn own Comp Metabolic Bhs673 BILI T 0.3 mg/dL 04/13/2021 Unkn own Comp Metabolic Tzq004 ALBUMIN 4.3 g/dL 04/13/2021 Unkn own Comp Metabolic Jvh681 TPRO 6.7 g/dL 04/13/2021 Unkn own Comp Metabolic Yrq190 GLOB 2.4 g/dL 04/13/2021 Unkn own Comp Metabolic Yts378 A/G Ratio 1.8 Ratio 04/13/2021 Unkn own Comp Metabolic Mvc505 Osmo 274 mOsmo 04/13/2021 Unkn own Procedures No Procedures data Vital Signs Date Vital 06/29/2021 Blood Pressure 1: 120/82 Code: 8480-6 BMI: 19.6 Code: 19013-5 Heart Rate 1: 96 bpm Height: 5'7" Code: 8302-2 Respiratory Rate: 16 bpm SpO2: 97% Temperature: 36.7 (C) / 98.0 (F) Weight: 125 lbs Code: 78031-1 05/06/2021 Blood Pressure 1: 120/76 Code: 8480-6 Heart Rate 1: 94 bpm Height: 5'7" Code: 8302-2 SpO2: 99% Temperature: 36.3 (C) / 97.3 (F) Weight: Code: 38995-2 04/13/2021 Blood Pressure 1: 110/66 Code: 8480-6 BMI: 19.1 Code: 77540-2 Heart Rate 1: 88 bpm Height: 5'7" Code: 8302-2 SpO2: 97% Temperature: 3 7.1 (C) / 98.7 (F) Weight: 122 lbs Code: 92852-0 Functional Status No Functional Status data Reason For Visit Reason For Visit Effective Dates Notes fatigue 06/29/2021 fatigue 05/06/2021 depression 04/13/2021 Encounters Encounter Performer Location Codes Date (64860) PREV VISIT EST AGE 18-39 Diagnosis: Encounter for general adult medical examination with abnormal findings[ICD10: Z00.01] Mary Carvajal MD, [facility] CPT-4: 61243 06/29/2021 ([id number]) 67388 EST. PATIENT, LEVEL IV Diagnosis: Migraine[ICD10: G43.909] Diagnosis: Other allergic rhinitis[ICD10: J30.89] Diagnosis: Tonsil stone[ICD10: J35.8] Diagnosis: Muscle spasm[ICD10: M62.838] Nohemi Carvajal MD, [facility] CPT- 4: 87610 05/06/2021 OFFICE VISIT, NEW - LEVEL 4 Diagnosis: Other malaise[ICD10: R53.81] Diagnosis: Other fatigue[ICD10: R53.83] Diagnosis: History of Lyme disease[ICD10: Z86.19] Diagnosis: Endometriosis[ICD10: N80.9] Nohemi Carvajal MD, [facility] CPT- 4: 26724 04/13/2021 Plan of Care Planned Activity Notes [...] the above recommendations do not help. 06/29/2021 Patient Education: Patient Medication Summary Completed [...] no improvement 05/06/2021 Appointment: Nohemi Ladd WPtel: [facility] ([facility] Complex 05/06/2021 Patient Education: Patient Medication Summary Completed 05/06/2021 Visit Plan: Fatigue, malaise, hx of lyme disease - will check labs and treat as indicated - will send RX - pt is to notify clinic with any acute changes, questions, or concerns. Endometriosis - will refer to CHIEF LIFESTYLE OFFICER - pt is to notify clinic with any questions, or concerns. 04/13/2021 Appointment: Nohemi Ladd WPtel: [facility] New Patient 04/13/2021 Patient Education: Patient Medication [...] or concerns. Endometriosis - will refer to CHIEF LIFESTYLE OFFICER - pt is to notify clinic with any questions, or concerns. Medical Equipment No Medical Equipment data Health Concerns Section Health Concerns data not found Goals Section Goals data not found Interventions Section Interventions data not found Health Status Evaluations/Outcomes Section Health Status Evaluations/Outcomes data not found Advance Directives No Advance Directive data
[2021-08-17] MEDS ORDERED: LACTATED RINGERS 1,000 ML IV PRN (08:15)
[2021-08-17] MEDS ORDERED: fentaNYL INJ 100 MCG/2 ML AMP ONE (08:31)
[2021-08-17] MEDS ORDERED: MIDAZOLAM 2 MG/2 ML (VERSED) VIAL ONE (08:32)
[2021-08-17 08:51] LABS: BASOPHILS % (AUTO) 1 % (0-10); EOSINOPHILS # (AUTO) 0.1 10^3/uL (0.0-0.3); EOSINOPHILS % (AUTO) 2 % (0-10); HEMATOCRIT 42 % (35-52); HEMOGLOBIN 14.2 g/dL (11.5-16.0); LYMPHOCYTES # (AUTO) 1.7 10^3/uL (1.0-4.0); LYMPHOCYTES % (AUTO) 44 % (12-44); MEAN CORPUSCULAR HEMOGLOBIN 29 pg (25-34); MEAN CORPUSCULAR HGB CONC 34 g/dL (32-36); MEAN CORPUSCULAR VOLUME 87 fL (80-99); MEAN PLATELET VOLUME 9.7 fL (9.0-12.2); MONOCYTES # (AUTO) 0.3 10^3/uL (0.0-1.0); MONOCYTES % (AUTO) 7 % (0-12); NEUTROPHILS # (AUTO) 1.7 10^3/uL (1.8-7.8); NEUTROPHILS % (AUTO) 45 % (42-75); PLATELET COUNT 268 10^3/uL (130-400); WHITE BLOOD COUNT 3.7 10^3/uL (4.3-11.0)
[2021-08-17] MEDS ORDERED: proPOfol 200 MG/20 ML (DIPRIVAN) VIAL IV ONE (09:01)
[2021-08-17] MEDS ORDERED: ONDANSETRON 4 MG/2 ML (SDV) Z0FRAN ONE (09:01)
[2021-08-17] MEDS ORDERED: SEVOFLURANE (ULTANE) 15 ML INHAL SOLN ONE (09:02)
[2021-08-17] MEDS ORDERED: LIDOCAINE PF 2% 5 ML (XYLOCAINE) VIAL ONE (09:02)
--- NOTE | 2021-08-17 09:13 | Discharge Inst-Women's Service ---
Discharge Inst-Women's Serv Depart Medication/Instructions New, Converted or Re-Newed RX: Other Instructions Patient to take OTC NSAIDs as needed for cramping. Problems Reviewed?: Yes Consults/Follow Up Additional Follow Up: Yes Activity Activity: Activity as Tolerated Driving Instructions: No Driving for 1 Week NO SMOKING: NO SMOKING Nothing Inside Vagina: No Douching, No [place], No Tampons Diet Discharge Diet: No Restrictions Symptoms to Report to : Bleeding Excessive, Pain Increased, Fever Over 101 Degrees F, Vaginal Bleeding Increase, Questions/Concerns DANNY BARAJAS DO Aug 17, 2021 09:13
[2021-08-17] MEDS ORDERED: ONDANSETRON 4 MG/2 ML (SDV) Z0FRAN IVP PRN ×2 (09:15→09:30)
[2021-08-17] MEDS ORDERED: KETOROLAC 30 MG/ML VIAL IVP ONE (09:15)
[2021-08-17] MEDS ORDERED: D5 LR IV SOLUTION 1,000 ML IV SCH (09:15)
[2021-08-17] MEDS ORDERED: fentaNYL INJ 100 MCG/2 ML AMP IVP ONE (09:30)
--- NOTE | 2021-08-17 09:33 | OPERATIVE REPORT ---
DATE OF SERVICE: PREOPERATIVE DIAGNOSIS: A 20-year-old female with retained IUD and lost IUD strings. POSTOPERATIVE DIAGNOSIS: A 20-year-old female with retained IUD and lost IUD strings. PROCEDURE: Exam under anesthesia, removal of old IUD, placement of a new IUD. SURGEON: Danny Barajas DO ANESTHESIA: LMA. ESTIMATED BLOOD LOSS: Minimal. URINE OUTPUT: 75 mL clear at the start of the procedure. FLUIDS: 800 mL lactated Ringer's solution. FINDINGS: Grossly normal-appearing external female genitalia with intact retained IUD. SPECIMEN SENT: None. INDICATIONS FOR PROCEDURE: This 20-year-old female is the patient was consulted in my office for lost IUD strings. The patient was very nervous and concerned about this as she wished for the IUD to be removed once the strings were not able to be palpated anymore by herself. I discussed with the patient in the office and attempted in the office to remove the IUD; however, we were unable to do so. She is unable to tolerate examination and removal of the IUD. I discussed placement of a new IUD as the patient does require and wants some form of control. Risk of anesthesia and removal of IUD and placement of a new IUD is discussed with the patient in detail in the preoperative area. After all of her questions were answered, consent was obtained, the patient was taken to the operating room. OPERATIVE REPORT IN DETAIL: Once in the operating room, anesthesia was found to be adequate. She was placed in the dorsal lithotomy position, prepped and draped in normal sterile fashion. Timeout was performed. I then placed a weighted speculum into the patient's vagina and the bladder was drained using straight catheterization. I then am able to grasp the cervix at 12 o'clock position using a long Allis clamp. I performed paracervical block at 3 and 9 o'clock positions on the cervix using 0.25% Marcaine. Care was taken to aspirate for injecting a total of 5 mL were injected into each site, after which I gently dilated the cervix using Hegar dilators to allow placement of a long curved [place] into the uterine cavity, at which point when I introduced this, unable to tease out the IUD intact by grasping at its distal tip. Once that IUD was removed, I gently sound the uterine cavity, depth was found to be 7 cm. I then placed a new Liletta IUD at a depth of 7 cm in typical fashion. The strings were trimmed approximately 3 cm length outside of the external cervical os, after which there was no active bleeding noted from any of my dissection planes. I removed all the instruments from the patient's vagina. The patient tolerated the procedure well and was taken to recovery area in stable condition. Lap and sponge counts were correct at the end of the procedure. Instrument counts correct as well. Job ID: [id number] DocumentID: [id number] Dictated Date: 08/17/2021 09:11:31 Reserves Clerk Date: 08/17/2021 09:33:05 Dictated By: DANNY BARAJAS DO
[2021-08-17] MEDS ORDERED: BUPIVACAINE 0.25% 30 ML (SENSORCAINE) VIAL ONE (09:41)
== END 2021-08-17 10:59 | disposition home or self-care (01) ==
LOC: SDC 08:06
PROVIDERS: ATTEND Obstetrics & Gynecology
DX: T83.39XA Other mechanical complication of intrauterine contraceptive device, initial encounter (principal); Z79.899 Other long term (current) drug therapy
CPT/HCPCS: 36415; 84703; 85025; 86850; 86900; 86901; 87081